=== PATIENT | female | born 1985 | race Caucasian/White ===

== ENCOUNTER 2019-11-04 04:58 | Inpatient (IN) | payer BC, OTHER ==
[2019-11-04 05:27] VITALS: BMI 28.1
[2019-11-04] MEDS ORDERED: Ondansetron PF 4 MG/2 ML Vial IVP PRN ×2 (05:41→07:01)
[2019-11-04] MEDS ORDERED: Ibuprofen 800 MG TAB PO PRN (05:41)
[2019-11-04] MEDS ORDERED: NS / Oxytocin 40 units/1000ml 1,000 ML IV PRN (05:41)
[2019-11-04] MEDS ORDERED: hydrALAZINE 20 MG/ML VIAL SLOW IVP PRN ×2 (05:41→09:29)
[2019-11-04] MEDS ORDERED: Butorphanol Tartrate 1 MG/ML VIAL SLOW IVP PRN (05:41)
[2019-11-04] MEDS ORDERED: Promethazine HCl 25 MG/ML VIAL IM PRN ×2 (05:41→07:01)
[2019-11-04] MEDS ORDERED: Lidocaine 1% (PF) 30 ML VIAL SC PRN (05:41)
[2019-11-04] MEDS ORDERED: Carboprost 250 MCG/ML AMP IM PRN (05:41)
[2019-11-04] MEDS ORDERED: Diphenoxylate HCl/Atropine Tablet PO PRN ×2 (05:41)
[2019-11-04] MEDS ORDERED: Methylergonovine 0.2 MG/ML VIAL IM PRN (05:41)
[2019-11-04] MEDS ORDERED: Misoprostol 200 MCG TAB PR PRN (05:41)
[2019-11-04] MEDS ORDERED: Acetaminophen 500 MG TAB PO PRN (05:41)
[2019-11-04] MEDS ORDERED: Lactated Ringer's 1,000 ML IV SCH (05:45)
--- NOTE | 2019-11-04 05:45 | PDOC.FPROB ---
FMR OB H&P: HPI - History of Present Illness Chief Complaint: Contractions Indentification: 33 year old at 38.1 wks History of Present Illness: 33 year old at 38.1 wks by LMP/7.6 wk sono presents with contractions every 5 minutes for last several hours. Patient denies vaginal bleeding, vaginal discharge, LoF. Endorses good movement. Primary Care Physician: Alice FMR OB H&P: Current - Care : 2 Para: 1001 Gestational age: 38.1 wks Due date: 11/17/2019 Dating Criteria: LMP/7.6 wk sono - OB Labs Blood type: O RH: positive Antibody Screen: negative HIV: negative HepBsAg: negative Rubella: immune Quad screen: negative Urine drug screen: negative Gonorrhea: negative Chlamydia: negative 1 hour gtt: 117 GBS: negative FMR OB H&P: History - Past Medical History PMH: Denies - OB History OB History: x1 - [employer] History [employer] History: Denies history of STD's - Surgical History Sx History: [place] teeth removal - Social History Social History: Denies alcohol, tobacco, or drug use FMR OB H&P: Medications - Current Home Medications: Medication Instructions Recorded Confirmed Type Vitamin 1 tab PO DAILY 01/12/16 11/04/19 History Allergies/Adverse Reactions: Allergies Allergy/AdvReac Type Severity Reaction Status Date / Time Sulfa (Sulfonamide Allergy Verified 01/12/16 06:28 Antibiotics) FMR OB H&P: ROS - Review of Systems General: denies: fever/chills Eyes: denies: double vision, scotomas ENT: denies: nasal congestion, rhinorrhea, sore throat Cardiovascular: denies: chest pain, palpitation, edema Respiratory: denies: cough, congestion, shortness of breath Gastrointestinal: reports: abdominal pain. denies: nausea, vomiting, diarrhea Genitourinary (Female): reports: contractions. denies: dysuria, vaginal discharge, vaginal pain, vaginal bleeding Musculoskeletal: denies: pain, decrease range of motion Neurologic: denies: numbness, syncope Integumentary: denies: itching, rash Hematologic/Lymphatic: denies: prolonged or excessive bleeding Psychological: denies: depression, anxiety FMR OB H&P: Vital Signs - Maternal Vital signs: BP 117/95 Pulse 112 Afebrile - Heart Tones Baseline: 120 Variability: moderate Acceleration: present Deceleration: absent Category: category 1 Danielson contractions every: q2-4 min FMR OB H&P: Physical Exam - Physical Exam General: NAD, awake, alert and oriented HEENT: EOMI, MMM, grossly normal vision, grossly normal hearing Heart: RRR, no murmurs/rubs/gallops General: CTAB, no respiratory distress Abdomen: soft, gravid, non-tender Musculoskeletal: pulses present, FROM in all four extremities Neurological: no tremor, no focal deficit Skin: no rash, capillary refill <2 seconds Lymphatic: no unusual bruising or bleeding Psychiatric: intact recent and remote memory, good judgement and insight, normal mood and affect - Pelvic Exam SVE: 5.5/80/-3 Presentation: Cephalic FMR OB H&P: A/P - Problem List (1) Term Current Visit: Yes Status: Acute Code(s): Z34.90 - ENCNTR FOR SUPRVSN OF NORMAL , UNSP, UNSP TRIMESTER (2) Active labor at term Current Visit: No Status: Acute Code(s): JVK0028 - Disposition: 33 year old at 38.1 wks by LMP/7.6 wks TIUP in active labor - Admit to L&D for expectant management - Category I strip - GBS negative Dispo: Admit to L&D for expectant management. Discussion: Date/Time: 11/04/19 0543 This H&P was discussed with Dr. Jenkins who agrees with the above documentation and plan. Signature: Tere Mcallister, PGY-3
[2019-11-04] MEDS ORDERED: Fentanyl 4 mcg/Bup 0.1% Cadd 100 ML ONE (06:05)
[2019-11-04 06:09] LABS: Hemoglobin 13.3 g/dL (12.0-16.0); Mean Corpuscular HGB CONC 33.7 g/dL (32.0-36.0); Mean Corpuscular Hemoglobin 30.4 pg (27.0-31.0); Mean Corpuscular Volume 90.3 fL (78.0-98.0); Mean Platelet Volume 9.4 fL (7.4-10.4); Platelet Count 237 thou/uL (130-400); RBC Distribution Width 11.8 % (11.5-14.5); Red Blood Cell (RBC) Count 4.39 mill/uL (4.20-5.40); White Blood Cell (WBC) Count 10.7 thou/uL (4.8-10.8)
[2019-11-04 06:36] LABS: HBSAg Index 0.14 S/CO (0-0.99); Hep B Surf Ag Non-Reactive S/CO (NonReactive); Syphilis Antibody Nonreactive (Nonreactive); Syphilis Antibody Index 0.03 S/CO (<1.00 Non-Reactive)
[2019-11-04] MEDS ORDERED: EPHEDRINE 25 MG/5 ML SYRINGE SLOW IVP PRN (07:01)
[2019-11-04] MEDS ORDERED: Lactated Ringer's 500 ML IV PRN (07:01)
[2019-11-04] MEDS ORDERED: Naloxone HCl 0.4 mg/ml Vial IVP PRN ×2 (07:01)
[2019-11-04] MEDS ORDERED: Acetaminophen 325 MG TAB PO PRN (07:01)
[2019-11-04] MEDS ORDERED: diphenhydrAMINE 50 MG/ML VIAL IVP PRN (07:01)
[2019-11-04] MEDS ORDERED: Communication Order-Pharmacy FS SCH (07:15)
[2019-11-04] MEDS ORDERED: Fentanyl 4 mcg/Bupivacaine 0.1% Cassette 100 ML EPIDURAL SCH (07:15)
[2019-11-04] MEDS ORDERED: Bupivacaine/Epinephrine 0.25% 30 ML VIAL ONE (09:21)
[2019-11-04] MEDS ORDERED: EPHEDRINE 25 MG/5 ML SYRINGE ONE (09:21)
--- NOTE | 2019-11-04 09:28 | PDOC.OPDEL ---
OB Operative/Delivery Note Delivery Dr/Surgeon: Alice Pre-Delivery Diagnosis: active labor Procedure/Post Delivery Dx: spontaneous vaginal delivery Weeks gestation: 38 Anesthesia: epidural - Findings A Sex: male - 1 min: 9 - 5 min: 9 - Additional Findings/Plan Placenta delivered: spontaneous Repaired Obstetrical Laceration: 1st degree Estimated blood loss: 100 qbl Post delivery plan: routine recovery
[2019-11-04] MEDS ORDERED: traMADol HCl 50 MG TAB PO PRN (09:29)
[2019-11-04] MEDS ORDERED: Milk Of Magnesia 30 ML UDCUP PO PRN (09:29)
[2019-11-04] MEDS ORDERED: Lanolin Ointment 7 GM TUBE TOP PRN (09:29)
[2019-11-04] MEDS ORDERED: diphenhydrAMINE 25 MG CAP PO PRN (09:29)
[2019-11-04] MEDS ORDERED: Bisacodyl 10 MG SUPP PR PRN (09:29)
[2019-11-04] MEDS ORDERED: Benzocaine-Menthol 82.5 ML CAN TOP PRN (09:29)
[2019-11-04] MEDS ORDERED: NS / Oxytocin 40 units/1000ml 1,000 ML IV SCH (09:30)
[2019-11-04] MEDS: Ibuprofen 800 MG TAB PO SCH ×2 (14:06→21:57)
[2019-11-04] MEDS: Ferrous Sulfate 325 MG TAB PO SCH (16:01)
[2019-11-04] MEDS: Docusate Calcium (SURFAK) 240 MG CAP PO SCH (21:57)
[2019-11-05] MEDS: Ibuprofen 800 MG TAB PO SCH (05:20)
--- NOTE | 2019-11-05 06:46 | PDOC.PP ---
Post Progress Note Post Day #: 1 Subjective: Patient doing well. No significant overnight events. Tolerating PO. Desires d/c home today. PO intake tolerated: yes Flatus: yes Ambulation: yes Vital Signs (12 hours) Temp Pulse Resp BP Pulse Ox 11/05/19 05:25 97.8 F 71 16 121/78 98 11/05/19 00:17 98.7 F 79 16 121/73 98 11/04/19 20:31 87 16 116/80 98 Weight Weight 81.647 kg - Physical Examination General: NAD Cardiovascular: RRR Deviation from normal: 2/6 systolic murmur Respiratory: clear to auscultation bilaterally, non-labored breathing Abdominal: + bowel sounds, lochia (minimal), no distention, appropriately TTP Fundus firm & at: below umbilicus Skin: no rash Neurological: no gross focal deficits Psychiatric: A&Ox3, normal affect Result Diagrams: 11/04/19 05:53 Additional Labs: Post Labs Blood Type O POSITIVE 11/04/19 05:53 Hep Bs Antigen Non-Reactive S/CO (NonReactive) 11/04/19 05:53 (1) Term delivered Code(s): O80 - ENCOUNTER FOR FULL-TERM UNCOMPLICATED DELIVERY Status: Acute - Assessment/Plan Routine PP care - PP day #1 - Meeting PP milestones - Rh positive, rubella immune - GBS neg - Desires d/c home today - Lochia minimal Dispo: Plan for d/c home today pending infant dispo.
[2019-11-05] MEDS ORDERED: Adacel (T-DAP) 0.5 ML SYRINGE IM ONE (09:00)
[2019-11-05] MEDS: Ferrous Sulfate 325 MG TAB PO SCH (09:09)
[2019-11-05] MEDS: Docusate Calcium (SURFAK) 240 MG CAP PO SCH (09:10)
[2019-11-05 09:52] VITALS: BP 114/76; TEMP 98.7
== END 2019-11-05 13:14 | disposition home or self-care (01) | DRG 807 ==
LOC: L&D/OP 04:58 → L&D 06:57 → 3SW 12:01
PROVIDERS: ADMIT Obstetrics & Gynecology; ATTEND Obstetrics & Gynecology
PROC: 10E0XZZ Delivery of Products of Conception, External Approach (ICD-10-PCS; principal; 2019-11-04)
PROC: 0HQ9XZZ Repair Perineum Skin, External Approach (ICD-10-PCS; 2019-11-04)
DX: O70.0 First degree perineal laceration during delivery (principal); Z37.0 Single live birth; Z3A.38 38 weeks gestation of pregnancy; Z88.2 Allergy status to sulfonamides
CPT/HCPCS: 36415; 51702; 85027; 86780; 86850; 86900; 86901; 87340; 99285